=== PATIENT | female | born 1955 | race Caucasian/White ===

== ENCOUNTER 2018-07-31 12:13 | Emergency (ER) | payer OTHER, MEDICARE ==
[2018-07-31] MEDS: LORAZEPAM 1 MG TAB PO (13:38)
[2018-07-31 14:27] LABS: ADD MAN DIFF? NO
[2018-07-31 14:30] LABS: WHITE BLOOD COUNT 6.6 10^3/ul (4.8-10.8)
[2018-07-31 14:30] LABS: BASOPHILS % 0.3 % (0.0-2.0); EOSINOPHILS # 0.1 10^3/ul (0.0-0.5); EOSINOPHILS % 0.8 % (0.0-7.0); HEMATOCRIT 39.4 % (37.0-47.0); HEMOGLOBIN 12.8 g/dl (12.0-16.0); LYMPHOCYTES # 1.9 10^3/ul (0.8-2.9); LYMPHOCYTES % 27.9 % (15.0-51.0); MEAN CORPUSCULAR HEMOGLOBIN 29.8 pg (29.0-33.0); MEAN CORPUSCULAR HGB CONC 32.5 g/dl (32.0-37.0); MEAN CORPUSCULAR VOLUME 91.8 fl (82.0-101.0); MEAN PLATELET VOLUME 9.3 fl (7.4-10.4); MONOCYTE # 0.4 10^3/ul (0.3-0.9); MONOCYTES % 5.9 % (0.0-11.0); NEUTROPHIL # 4.3 10^3/ul (1.6-7.5); NEUTROPHILS % 64.9 % (39.0-77.0); PLATELET COUNT 202 10^3/UL (140-415); RED BLOOD COUNT 4.29 10^6/ul (4.20-5.40)
[2018-07-31 14:52] LABS: ALANINE AMINOTRANSFERASE 32 IU/L (13-69); ALBUMIN 4.5 g/dl (3.3-4.9); ALKALINE PHOSPHATASE 63 IU/L (42-121); ANION GAP 13 (5-13); ASPARTATE AMINO TRANSFERASE 25 IU/L (15-46); BILIRUBIN,INDIRECT 0.5 mg/dl (0-1.1); BILIRUBIN,TOTAL 0.5 mg/dl (0.2-1.3); BLOOD UREA NITROGEN 16 mg/dl (7-20); CALCIUM 9.3 mg/dl (8.4-10.2); CARBON DIOXIDE 27 mmol/L (21-31); CHLORIDE 104 mmol/L (97-110); CREATININE 0.55 mg/dl (0.44-1.00); Estimated GFR > 60 mL/min (>60); GLUCOSE 101 mg/dl (70-220); POTASSIUM 3.9 mmol/L (3.5-5.1); SODIUM 144 mmol/L (135-144); TOTAL PROTEIN 7.7 g/dl (6.1-8.1)
[2018-07-31 15:03] LABS: TROPONIN-I < 0.012 ng/ml (0.000-0.120)
[2018-07-31 15:59] LABS: D-DIMER 511.06 ng/ml (<460)
== END 2018-07-31 16:13 | disposition home or self-care (01) ==
LOC: FTE 12:13
DX: F41.9 Anxiety disorder, unspecified (principal); R07.9 Chest pain, unspecified; Z96.652 Presence of left artificial knee joint
CPT/HCPCS: 36415; 71045; 80053; 84484; 85025; 85378; 93005; 99285-25

== ENCOUNTER 2019-02-19 10:38 | Emergency (ER) | payer MEDICARE, OTHER ==
[2019-02-19 11:31] LABS: ADD MAN DIFF? NO
[2019-02-19 11:33] LABS: BASOPHILS % 0.4 % (0.0-2.0); EOSINOPHILS % 0.7 % (0.0-7.0); HEMOGLOBIN 12.8 g/dl (12.0-16.0); LYMPHOCYTES # 1.8 10^3/ul (0.8-2.9); LYMPHOCYTES % 31.2 % (15.0-51.0); MEAN CORPUSCULAR HEMOGLOBIN 29.9 pg (29.0-33.0); MEAN CORPUSCULAR HGB CONC 32.8 g/dl (32.0-37.0); MEAN CORPUSCULAR VOLUME 91.1 fl (82.0-101.0); MEAN PLATELET VOLUME 9.5 fl (7.4-10.4); MONOCYTE # 0.4 10^3/ul (0.3-0.9); MONOCYTES % 6.7 % (0.0-11.0); NEUTROPHIL # 3.4 10^3/ul (1.6-7.5); NEUTROPHILS % 60.8 % (39.0-77.0); PLATELET COUNT 182 10^3/UL (140-415); RED BLOOD COUNT 4.28 10^6/ul (4.20-5.40); RED CELL DISTRIBUTION WIDTH 13.1 % (11.5-14.5)
[2019-02-19 11:33] LABS: WHITE BLOOD COUNT 5.6 10^3/ul (4.8-10.8)
[2019-02-19 12:09] LABS: TROPONIN-I < 0.012 ng/ml (0.000-0.120)
[2019-02-19 12:51] LABS: ALANINE AMINOTRANSFERASE 28 IU/L (13-69); ALBUMIN 4.5 g/dl (3.3-4.9); ALBUMIN/GLOBULIN RATIO 1.18; ALKALINE PHOSPHATASE 50 IU/L (42-121); ANION GAP 9 (5-13); ASPARTATE AMINO TRANSFERASE 22 IU/L (15-46); BILIRUBIN,INDIRECT 0.6 mg/dl (0-1.1); BILIRUBIN,TOTAL 0.6 mg/dl (0.2-1.3); BLOOD UREA NITROGEN 18 mg/dl (7-20); CALCIUM 9.3 mg/dl (8.4-10.2); CARBON DIOXIDE 25 mmol/L (21-31); CHLORIDE 108 mmol/L (97-110); Estimated GFR > 60 mL/min (>60); GLUCOSE 120 mg/dl (70-220); POTASSIUM 3.9 mmol/L (3.5-5.1); SODIUM 142 mmol/L (135-144); TOTAL PROTEIN 8.3 g/dl (6.1-8.1)
== END 2019-02-19 13:57 | disposition home or self-care (01) ==
LOC: FTE 10:38
DX: F41.9 Anxiety disorder, unspecified (principal); Z85.841 Personal history of malignant neoplasm of brain
CPT/HCPCS: 71045; 80053; 84443; 84484; 85025; 93005; 99285-25